=== PATIENT | male | born 1955 | race African-American/Black ===

== ENCOUNTER → 2018-10-25 | Outpatient (CLI) | payer OTHER ==
[~2018-10-25] VITALS: Ht 172.7 cm; Wt 81.6 kg
[~2018-10-25] MED LIST: FLOMAX0.4 MG PO; LASIX 20 MG TAB20 MG PO; LEVEMIR100 UNIT/1 SUBQ; LISINOPRIL40 MG PO; PROVENTIL INH; SILDENAFIL CIT100 MG PO
[2018-10-25 11:38] VITALS: BP 126/87
--- NOTE | 2018-10-25 12:01 | NUR ---
SEE CLINICAL SUMMARY FROM [facility] FOR DETAILS.
[2018-10-25 12:03] LABS: CALCIUM 9.4 mg/dL (8.5-10.1); CREATININE 2.2 mg/dL (0.7-1.3); HEMATOCRIT 35.5 % (42.0-52.0); HEMOGLOBIN 11.6 gm/dL (14.0-18.0); MCH 30.4 pg (26.0-34.0); MCHC 32.8 g/dL (28.0-37.0); MCV 92.6 fL (80.0-100.0); POTASSIUM 4.8 mmol/L (3.5-5.1); RBC 3.83 mil/uL (4.50-6.00); RDW 14.2 % (10.5-14.5); WBC 9.2 thou/uL (4.0-11.0)
--- NOTE | 2018-10-25 18:25 | NUR ---
Pt did not want to wait any longer. Physician notified and pt reschel on 11/11/18 at 0800. Pt given information.
== END ==
LOC: SPEC 07:27
PROVIDERS: Nuclear Medicine Nuclear Cardiology
DX: L97.819 Non-pressure chronic ulcer of other part of right lower leg with unspecified severity (principal); Z53.29 Procedure and treatment not carried out because of patient's decision for other reasons

== ENCOUNTER → 2018-11-20 | Outpatient (CLI) | payer OTHER ==
[~2018-11-20] VITALS: Ht 172.7 cm; Wt 78.9 kg
[2018-11-20] VITALS (7 sets, daily range): BP systolic 113–130; BP diastolic 65–87
[~2018-11-20] MED LIST changes: +ASPIR 8181 MG PO; +ATORVASTATIN CA40 MG PO; +BUMETANIDE 1 MG1 M1 PO; +CARVEDILOL3.125 MG PO
[2018-11-20 09:03] LABS: HEMATOCRIT 35.3 % (42.0-52.0); HEMOGLOBIN 11.6 gm/dL (14.0-18.0); MCH 30.7 pg (26.0-34.0); MCHC 32.8 g/dL (28.0-37.0); MCV 93.8 fL (80.0-100.0); RBC 3.77 mil/uL (4.50-6.00); RDW 14.6 % (10.5-14.5); WBC 7.9 thou/uL (4.0-11.0)
[2018-11-20 09:12] LABS: CALCIUM 9.6 mg/dL (8.5-10.1); CREATININE 2.3 mg/dL (0.7-1.3); POTASSIUM 4.5 mmol/L (3.5-5.1)
== END | disposition home or self-care (01) ==
LOC: SPEC 11-11 07:05
PROVIDERS: Nuclear Medicine Nuclear Cardiology
DX: I70.238 Atherosclerosis of native arteries of right leg with ulceration of other part of lower leg (principal); L97.919 Non-pressure chronic ulcer of unspecified part of right lower leg with unspecified severity; I70.1 Atherosclerosis of renal artery; I10 Essential (primary) hypertension; E11.40 Type 2 diabetes mellitus with diabetic neuropathy, unspecified; I25.10 Atherosclerotic heart disease of native coronary artery without angina pectoris; E78.5 Hyperlipidemia, unspecified; M86.9 Osteomyelitis, unspecified; Z79.4 Long term (current) use of insulin; Z87.891 Personal history of nicotine dependence; Z79.82 Long term (current) use of aspirin; Z79.899 Other long term (current) drug therapy; Z98.890 Other specified postprocedural states